=== PATIENT | male | born 1990 | race Caucasian/White ===

== ENCOUNTER 2019-10-23 14:03 | Outpatient (CLI) | payer BC, SELFPAY ==
[2019-10-23 16:03] LABS: Hepatitis C Virus Antibody Non-Reactive (Nonreactive)
[2019-10-23 16:04] LABS: Hepatitis B Surface Antigen. Non-Reactive (Nonreactive)
[2019-10-23 16:08] LABS: HIV 1 & 2 Antibody Non-Reactive (Non-Reactiv); HIV 1 & 2 Antigen Non-Reactive (Non-Reactiv)
[2019-10-27 14:30] LABS: Rapid Plasma Reagin Syphilis Nonreactive (Nonreactive)
[2019-11-08 15:55] LABS: Chromosome Analysis, Blood SEE SCANNED
== END 2019-10-23 14:04 | disposition home or self-care (01) ==
PROVIDERS: Referring Provider Obstetrics & Gynecology Reproductive Endocrinology; Visit Provider Obstetrics & Gynecology Reproductive Endocrinology
DX: N46.11 Organic oligospermia (principal); Z11.3 Encounter for screening for infections with a predominantly sexual mode of transmission
CPT/HCPCS: 36415; 86592; 86803; 87340; 88262

== ENCOUNTER 2021-04-07 07:45 | Outpatient (CLI) | payer BC, SELFPAY | END 2021-04-07 07:46 | disposition home or self-care (01) | PROVIDERS: Visit Provider Obstetrics & Gynecology Reproductive Endocrinology | DX: Z31.441 Encounter for testing of male partner of patient with recurrent pregnancy loss (principal) | CPT/HCPCS: 36415; 88262 ==

== ENCOUNTER 2021-04-24 14:04 | Outpatient (CLI) | payer BC, SELFPAY | END 2021-04-24 14:05 | disposition home or self-care (01) | PROVIDERS: Visit Provider Obstetrics & Gynecology Reproductive Endocrinology | DX: Z31.441 Encounter for testing of male partner of patient with recurrent pregnancy loss (principal) | CPT/HCPCS: 36415; 88262 ==

== ENCOUNTER 2021-05-31 07:11 | Outpatient (CLI) | payer BC, SELFPAY ==
[2021-05-31 07:37] VITALS: BP 120/83; PULSE 96; RESP 18; TEMP 36.9; O2SAT 96; BMI 31.2
[2021-05-31 08:03] VITALS: BP 121/78; PULSE 85; RESP 18; O2SAT 96
[2021-05-31 09:06] VITALS: BP 111/77; PULSE 69; RESP 16; TEMP 36.6; O2SAT 98
== END 2021-05-31 07:12 | disposition home or self-care (01) ==
PROVIDERS: PCP Family Medicine; Visit Provider Family Medicine
DX: U07.1 COVID-19 (principal)
CPT/HCPCS: 96365

== ENCOUNTER → 2021-11-11 14:46 | Outpatient (BNVA) | payer OTHER, SELFPAY | PROVIDERS: PCP Family Medicine; Visit Provider Nurse Practitioner | DX: Z20.822 Contact with and (suspected) exposure to COVID-19 (principal) | CPT/HCPCS: 87635 ==

== ENCOUNTER 2025-05-14 18:23 | Day surgery (SDC) | payer SELFPAY ==
[2025-05-14] VITALS (11 sets, daily range): BP systolic 118–132; BP diastolic 70–92; PULSE 83–108; RESP 18–24; TEMP 36.1–36.8; O2SAT 91–100; BMI 29.9
--- OUTSIDE RECORDS SUMMARY | 2025-05-14 18:31 | XMS_ITS | Clinical Summary ---
Author Organization [facility] Address [address] [place] [id number] Care Team Providers Care Hide Cleaner Name Role Phone Unavailable Primary Care Provider Unavailabl e Social History Tobacco Use Types Packs/Day Years Used Date Smoking Tobacco: Never Assessed Sex and Gender Information Value Date Recorded Sex Assigned at Not on file Legal Sex Male 7:53 AM CDT Gender Identity Not on file Sexual Orientation Not on file Last Filed Vital Signs Vital Sign Reading Time Taken Comments Blood Pressure 112/78 08/04/2024 8:34 AM CDT Pulse - - Temperature - - Respiratory Rate - - Oxygen Saturation - - Inhaled Oxygen Concentration - - Weight 82.4 kg (181 lb 11.2 oz) 08/04/2024 8:34 AM CDT Height 165.1 cm (5' 5 ) 08/04/2024 8:34 AM CDT Body Mass Index 30.24 08/04/2024 8:34 AM CDT Plan of Treatment Health Maintenance Due Date Last Done Comments HIV Screening 1989 Hepatitis C Screening ages 1 8 to 79 once 1989 MMR VACCINES (1 of 1 - Stand day series) 1990 YEARLY WELLNESS EXAM 1992 DEPRESSION SCREENING 2001 Varicella Vaccine (1 of 2 - 13+ 2-dose series) 2002 HPV VACCINES (1 - Male 3-dos e series) 2004 BMI Above/Below Normal Parameters 2007 ADULT TETANUS 2008 HEPATITIS B VACCINES (1 of 3 - 19+ 3-dose series) 2008 COVID-19 Immunization (1 - 2 024-25 season) 2024 LIPID TESTING 2024 Influenza Vaccine 05/12/2025 Zoster Vaccine (Recombinant Vaccine) (1 of 2) 2039 HEPATITIS A VACCINES Aged Out No long er eligible based on patient's age to complete this topic HIB VACCINES Aged Out No longer eligi ble based on patient's age to complete this topic IPV VACCINES Aged Out No longer eligi ble based on patient's age to complete this topic MENINGOCOCCAL VACCINE Aged Out No eva janet eligible based on patient's age to complete this topic Meningococcal B Vaccine Aged Out No l onger eligible based on patient's age to complete this topic Pneumococcal Vaccine: Peds t o 50 & At-Risk Patients Aged Out No longer eligible b ased on patient's age to complete this topic ROTAVIRUS VACCINES Aged Out No longer eligible based on patient's age to complete this topic Insurance [employer]
--- NOTE | 2025-05-14 18:39 | ED_ITS ---
HPI - General Adult General: Chief complaint: Airway/Esophagus Foreign Body Stated complaint: Something lodged in throat. N/V Time Seen by Provider: 05/14/25 18:37 Source: patient Mode of arrival: ambulatory Limitations: no limitations History of Present Illness: 34-year-old male states that he ate stea k last night and feels like he had a piece steak stuck in his esophagus since then. He states that he has not been able to tolerate anything p.o. today no solids or liquids at all just comes back up. He denies any history of food impaction in the past. Denies any pain denies any shortness of breath Associated symptoms: Deny chest pain, dyspnea, headache(s), nausea, rash or vomiting Related Data Previous Rx's ?Medication ?Instructions ?Recorded albuterol sulfate 90 mcg/actuation 1 inh inhalation QI D PRN shortness 01/06/21 aerosol inhaler (Ventolin HFA) of breath or wheezing # 8.5 grams Allergies Allergy/AdvReac Type Severity Reaction Status Date / Time cephalexin Allergy ALGY-Rash Verified 05/14/25 18:32 Review of Systems Const: Denies: fever(s), chills, body aches or change in appetite ENMT: Denies: throat pain or dental pain Card: Denies: chest pain Resp: Denies: dyspnea GI: Denies: abdominal pain, nausea, vomiting or diarrhea Musc: Denies: neck pain or back pain Skin/Breast: Denies: rash Neuro: Denies: headache(s) PFSH ED PFSH: Family History Family/Other Cancer Diabetes CAD (coronary artery disease) Hypertension Social History Smoking and tobacco/nicotine status: never used tobacco/nicotine Alcohol intake: never Substance/Drug Use: never Marital status: Current occupational status: employed Physical Exam Const: COMMON NORMALS: no acute distress, patient oriented x3 and healthy appearing HENMT: COMMON NORMALS: normocephalic and atraumatic HEAD & SCALP: normocephalic and atraumatic Eye: COMMON NORMALS: conjunctivae normal CONJUNCTIVA: Yes conjunctivae normal Neck/C-Spine: COMMON NORMALS: full ROM and supple Chest: COMMONS NORMALS: normal inspection of the chest Resp: COMMON NORMALS: normal respiratory effort, No retractions, No use of accessory muscles and clear to auscultation bilaterally AUSCULTATION: clear to auscultation bilaterally Cardio: COMMON NORMALS: regular rate, regular rhythm and No murmurs present (Cardio) RATE: regular rate RHYTHM: regular rhythm Extremity: COMMON NORMALS: normal to inspection and full ROM Neuro: COMMON NORMALS: patient oriented x3, moves all extremities and no focal motor deficits Psych: COMMON NORMALS: mental status grossly normal, Normal thought process present and cooperative THOUGHT PROCESS: Normal thought process present Skin: COMMON NORMALS: no rashes or lesions noted and no wounds GENERAL SKIN EXAM: no rashes or lesions noted Course Vital Signs: Vital signs: Vital Signs Temperature 98.2 F 05/14/25 18:24 Pulse Rate 83 05/14/25 18:24 Blood Pressure 120/70 05/14/25 18:50 Pulse Oximetry 100 05/14/25 18:50 Oxygen Delivery Me thod Room Air 05/14/25 18:50 MDM - General Adult Medical Decision Making Patient presents with esophageal food impaction patient seen by surgeon Dr. William who is taken him to the GI lab he has been stable while here. Medical Records I reviewed the patient's medical records. No radiology studies performed this visit Discharge Plan Discharge Patient Disposition: Admitted As Inpatient Clinical Impression: Food impaction of esophagus Condition: Stable Coding Level of Care Code ED Relief Pharmacist for Kevin Weldon
[2025-05-14] MEDS: glucagon 1 mg/mL KIT 1 mL IM (18:48)
--- NOTE | 2025-05-14 19:12 | PC.NURSE ---
patient states the obstruction feels like it has moved. Gave patient water for PO challenge.
--- NOTE | 2025-05-14 19:43 | PM.HP ---
Providers/Chief Complaint Admitting Physician: Kaylie William DO - General surgeon Primary Care Provider: Nabil Vanegas MD Chief Complaint: Something lodged in throat. N/V History of Present Illness Arsenio Fernandez is a 34 year old male with likely food bolus impaction. The patient stated that he was eating steak last night and feels like that it is stuck in his throat. He has tried drinking soda and water. If he drinks or sips on water, he ends up spitting up small amounts of foamy water. He feels a globus sensation at his upper chest, but he was adamant that he does not have chest pain. Additionally, he has never had an upper scope. He has had trouble swallowing over the past few months, but has always been able to get it to pass on its own. He does have a history of asthma and bronchitis, for which he takes an albuterol inhaler. Review of Systems General: Reports: 10 or more systems reviewed and unremarkable except in HPI and below Const: Denies: fever(s) or chills Card: Denies: chest pain or palpitations GI: Reports: dysphagia; Denies: abdominal pain, nausea, vomiting or coffee ground emesis Neuro: Denies: confusion Medications/Allergies Home Medications ?Medication ?Instructions ?Recorded ?Confirmed ?Last Taken ?Type albuterol sulfate 90 mcg/actuation 1 inh inhalation QID PRN shortness 01/06/21 05/14/25 Unknown Rx aerosol inhaler (Ventolin HFA) of breath or wheezing #8.5 grams Allergies Allergy/AdvReac Type Severity Reaction Status Date / Time cephalexin Allergy ALGY-Rash Verified 05/14/25 18:32 PFSH Acute PFSH: Family History Family/Other Cancer Diabetes CAD (coronary artery disease) Hypertension Social History Smoking and tobacco/nicotine status: never used tobacco/nicotine Alcohol intake: never Substance/Drug Use: never Marital status: Current occupational status: employed Vitals/I&O/Wt Last Vital Signs Temp 98.2 F 05/14/25 18:24 Pulse 83 05/14/25 18:24 BP 120/70 08/03/25 18:50 Pulse Ox 100 05/14/25 18:50 O2 Del Method Room Air 05/14/25 18:50 Weight last 48 hrs Weight 180 lb Physical Exam Const: COMMON NORMALS: no acute distress and patient oriented x3 HENMT: COMMON NORMALS: normocephalic and atraumatic Resp: COMMON NORMALS: normal respiratory effort and No use of accessory muscles GI: COMMON NORMALS: Soft to palpation and non-tender Neuro: COMMON NORMALS: patient oriented x3 and moves all extremities Psych: COMMON NORMALS: mental status grossly normal, Normal thought process present and cooperative A&P Assessment and plan 1. Food impaction of esophagus: -- Prior to the procedure, the procedure and what it would entail, including the risks, benefits, and potential alternative treatment options were discussed with the patient and his family member in detail. Risks included but were not limited to infection, perforation of the gastrointestinal tract requiring surgical intervention, need for transfer to a higher level of care for a major thoracic or abdominal surgery, need for additional procedures, and heart or lung complications. The patient expressed understanding of all the risks, benefits, and alternatives and wished to proceed with EGD with removal of food bolus impaction. -- I discussed with the patient and his that he may have some pathology such as eosinophilic esophagitis, esophageal stricture, or hiatal hernia that is contributing to this problem of difficulty swallowing/food bolus impaction. They expressed understanding and agreed that they would follow-up with surgery or gastroenterology. I also recommended that he mince his foods and avoid large chunks of meat or bread until this has been further worked up. He may need further procedures performed at a later time such as esophageal dilation and/or esophageal or gastric biospies. If I find any ulcerations, bleeding, or more serious pathology, he may need to stay in hospital at the very least overnight tonight. -- All questions were answered and he wished to proceed with EGD with removal of food bolus impaction. 2. Asthma: 3. Seasonal allergies: PDMP PDMP Reviewed: Not Reviewed Attestations Medical Necessity Statement*: Monitoring of vital signs, labs, procedure. Coding Level of Care Code Acute Code for [facility] Fwd Diagnoses Food impaction of esophagus T18.128A; W44.F3XA Asthma J45.909 Seasonal allergies J30.2
--- NOTE | 2025-05-14 22:25 | ANE.PACU2 ---
Inpatient post-anesthesia follow up: Airway intact: Yes Vital signs: Temperature 97.0 F Pulse Rate 85 Respiratory Rate 18 Blood Pressure 127/85 Pulse Oximetry 96 Oxygen Delivery Me thod Room Air Oxygen Flow Rate 2 Fraction of Inspir ed Oxygen Hydration adequate: Yes Nausea and vomiting: No Pain level: 1 Mental status: Baseline
--- NOTE | 2025-05-14 23:34 | PM.DCS ---
Discharge Providers Date of Admission: May 14, 2025 Date of Discharge: May 14, 2025 Attending Provider at Admission: Kaylie William DO Attending Provider at Discharge: Kaylie William DO Consults: None Primary Care Provider: Nabil Vanegas MD Diagnoses at Discharge Discharge Diagnosis 1. Food impaction of esophagus: Details from hospital stay: The patient had a food bolus impaction (see H and P) and underwent EGD with removal of food bolus impaction (see procedure note) on May 14, 2025. He was noted to have large food bolus impaction, LA grade B distal esophagitis, and antral gastritis. He did not have an esophageal stricture. He tolerated the procedure well and was recovered in the GI lab. His vital signs and pain were monitored. I discussed my findings and the plan of care in detail with the patient's spouse. [facility]afate and proton[facility] [place]. 2. Asthma: 3. Seasonal allergies: Reason for Visit Reason for Visit: Something lodged in throat. N/V Physical Exam Const: COMMON NORMALS: no acute distress and patient oriented x3 Chest: COMMONS NORMALS: normal inspection of the chest Resp: COMMON NORMALS: normal respiratory effort and No use of accessory muscles GI: COMMON NORMALS: Soft to palpation and non-tender PALPATION: Yes Soft to palpation Neuro: COMMON NORMALS: patient oriented x3 and moves all extremities Psych: COMMON NORMALS: mental status grossly normal, cooperative and normal affect Discharge Data Studies Completed and Pending Pending at discharge Category Date Time Status Pathology: Surgical [PTH] Routine Pth 05/14/25 21:11 Ordered Procedures Performed EGD Vitals Last Vital Signs Temp 97.0 F L 05/14/25 20:21 Pulse 85 05/14/25 22:12 Resp 18 05/14/25 22:12 BP 127/85 05/14/25 22:12 Pulse Ox 96 05/14/25 22:12 O2 Del Method Room Air 05/14/25 22:12 O2 Flow Rate 2 05/14/25 21:44 Discharge Plan Discharge Patient Disposition: Home Condition: Stable Prescriptions: New pantoprazole [Protonix] 40 mg tablet,delayed release (DR/EC) 40 mg PO DAILY 42 Days Qty: 30 1RF sucralfate [Carafate] 1 gram tablet 1 g PO Q6H 42 Days Qty: 168 0RF Continued albuterol sulfate [Ventolin HFA] 90 mcg/actuation HFA aerosol inhaler 1 inh inhalation QID PRN (Reason: shortness of breath or wheezing) Qty: 8.5 0RF Discharge Order = DC NOW: Discharge Order (Routine); Ordered 05/14/25 Ordered By: Kaylie William Referrals: Spike Galo MD [Physician, General Surgery] - 2 weeks Referral Note: Food bolus impaction, esophagitis, gastritis (biopsied), repeat EGD in 4-[address] Galo's Office Will Call You To Schedule A Two Week Follow-up Appointment Nabil Vanegas MD [Primary Care Provider, [facility]] Discharge Diet: Clear Liquid Discharge Activity: Increase activity as tolerated Patient Instructions: GI Post Discharge Instructions w/ Anesthesia Activity Restrictions/Additional Instructions: -- Clear liquid diet for 48 to 72 hours, then a minced diet, avoid bread and chunks of meats. -- Protonix 40 mg daily, 30 minutes before 1st meal of day -- Carafate 1 gm, dissolved in 1-2 Tablespoons of water, QID -- Strict return to ED if severe chest or abdominal pain, racing heart, fevers/chills -- Follow up with Dr. Galo in 2 weeks. No esophageal stricture noted. Consider an esophageal dismotility disorder. -- Repeat EGD in 4-6 weeks, for surveillance of esophagitis, and possibly rule out Forrester's Metaplasia. Print Language: Tristanian Discharge Attestations Time Spent in Discharge Care*: greater than 30 min Quality Metrics Clinical Quality Measures [ No reported AMI, CVA or VTE this stay] Coding Level of Care Code Acute Code for [facility] Fwd Diagnoses Food impaction of esophagus T18.128A; [id number].F3XA Asthma J45.909 Seasonal allergies J30.2
== END 2025-05-14 22:25 | disposition home or self-care (01) ==
LOC: ER 19:29 → GILAB 19:51
PROVIDERS: Emergency Provider Emergency Medicine; PCP Family Medicine; Visit Provider Surgery
PROC: 0DJ08ZZ Inspection of Upper Intestinal Tract, Via Natural or Artificial Opening Endoscopic (ICD-10-PCS; principal; 2025-05-14 08:05)
DX: T18.128A Food in esophagus causing other injury, initial encounter (principal); W44.F3XA Food entering into or through a natural orifice, initial encounter; K20.90 Esophagitis, unspecified without bleeding; K29.70 Gastritis, unspecified, without bleeding; J45.909 Unspecified asthma, uncomplicated
CPT/HCPCS: 43247; 88305; 96372; J0330; J1100; J1610; J2250; J2405; J2704; J3010; J3490; J9999